=== PATIENT | female | born 2000 | race Two or more races ===

== ENCOUNTER 2022-03-09 02:25 | Outpatient (CLI) | payer OTHER ==
[2022-03-09] MEDS ORDERED: PRENATAL CAPLE1 EAC1 PO (03:29)
[2022-03-09] MEDS ORDERED: NIFE60TA3 PO (08:29)
== END 2022-03-09 08:46 | disposition home or self-care (01) ==
LOC: OBS/DEL 02:25
PROVIDERS: ATTEND Specialist
DX: O60.02 Preterm labor without delivery, second trimester (principal); Z3A.20 20 weeks gestation of pregnancy

== ENCOUNTER 2022-07-10 15:15 | Inpatient (IN) | payer OTHER ==
[~2022-07-10] VITALS: Ht 162.6 cm; Wt 76.7 kg
[~2022-07-10 15:15] MED LIST: NIFE60TA3 PO; PRENATAL CAPLE1 EAC1 PO
== END 2022-07-30 13:21 | disposition home or self-care (01) | DRG 807 ==
LOC: EDSTATUS 15:15 → LDR 07-26 15:15 → OB/GYN 07-28 07:09 → LDR 07-28 07:34 → OB/GYN 07-28 20:49
PROVIDERS: ADMIT Specialist; ATTEND Specialist
PROC: 10D07Z6 Extraction of Products of Conception, Vacuum, Via Natural or Artificial Opening (ICD-10-PCS; principal; 2022-07-28)
PROC: 4A1HXCZ Monitoring of Products of Conception, Cardiac Rate, External Approach (ICD-10-PCS; 2022-07-28)
PROC: 0W8NXZZ Division of Female Perineum, External Approach (ICD-10-PCS; 2022-07-28)
DX: O66.5 Attempted application of vacuum extractor and forceps (principal); Z37.0 Single live birth; Z3A.40 40 weeks gestation of pregnancy; Z20.822 Contact with and (suspected) exposure to COVID-19

== ENCOUNTER 2022-07-31 18:22 | Inpatient (IN) | payer OTHER ==
[~2022-07-31] VITALS: Ht 162.6 cm; Wt 76.7 kg
[2022-08-03] MEDS ORDERED: LABETALOL HCL100 MG PO (12:45)
[2022-08-03] MEDS ORDERED: CEFUROXIME500 MG PO (12:45)
== END 2022-08-03 16:59 | disposition home or self-care (01) | DRG 776 ==
LOC: ER 18:22 → OB/GYN 23:35 → LDR 23:35 → OB/GYN 08-02 12:09
PROVIDERS: ADMIT Specialist; ATTEND Specialist
PROC: BW4GZZZ Ultrasonography of Pelvic Region (ICD-10-PCS; principal; 2022-07-31)
DX: O14.95 Unspecified pre-eclampsia, complicating the puerperium (principal); Z20.822 Contact with and (suspected) exposure to COVID-19; O86.4 Pyrexia of unknown origin following delivery

== ENCOUNTER 2022-10-21 10:16 | Emergency (ER) | payer OTHER ==
[~2022-10-21] VITALS: Ht 162.6 cm; Wt 62.6 kg
[~2022-10-21 10:16] MED LIST changes: +CEFUROXIME500 MG PO; +LABETALOL HCL100 MG PO
[2022-10-21] MEDS ORDERED: LABETALOL HCL100 MG PO (13:57)
== END 2022-10-21 14:07 | disposition home or self-care (01) ==
LOC: ER 10:16
DX: R07.89 Other chest pain (principal); I10 Essential (primary) hypertension

== ENCOUNTER 2022-11-02 18:02 | Emergency (ER) | payer OTHER ==
[~2022-11-02] VITALS: Ht 167.6 cm; Wt 68.0 kg
== END 2022-11-02 21:51 | disposition home or self-care (01) ==
LOC: ER 18:02
DX: M94.0 Chondrocostal junction syndrome [Tietze] (principal); Z20.822 Contact with and (suspected) exposure to COVID-19

== ENCOUNTER 2022-11-12 14:53 | Emergency (ER) | payer OTHER ==
[~2022-11-12] VITALS: Ht 162.6 cm; Wt 62.6 kg
[2022-11-12] MEDS ORDERED: ZESTRIL5 MG (15:19)
[2022-11-12] MEDS ORDERED: D3-200050 MCG PO (16:47)
[2022-11-12] MEDS ORDERED: BACTRIM DS TAB1 EACH PO (16:47)
== END 2022-11-12 17:16 | disposition home or self-care (01) ==
LOC: ER 14:53
DX: N39.0 Urinary tract infection, site not specified (principal); I10 Essential (primary) hypertension

== ENCOUNTER 2023-12-11 19:25 | Emergency (ER) | payer OTHER ==
[~2023-12-11] VITALS: Ht 162.6 cm; Wt 56.2 kg
[~2023-12-11 19:25] MED LIST changes: +BACTRIM DS TAB1 EACH PO; +D3-200050 MCG PO; +ZESTRIL5 MG
[2023-12-11] MEDS ORDERED: GUAIFENESIN/DEXTROMETHORPHAN 100 MG/5 ML ML PO ONE (20:45)
[2023-12-11 21:49] LABS: HEMATOCRIT 37.8 % (36.0-45.00); HEMOGLOBIN 13.5 g/dL (12.0-15.00); MEAN CELL VOLUME 83.2 fL (80.00-100.00); MEAN CORPUSCULAR HEMOGLOBIN 29.6 pg (27.00-32.0); MEAN CORPUSCULAR HGB CONC 35.6 g/dl (32.0-36.0); PLATELET COUNT 272 K/uL (150-450); RED BLOOD COUNT 4.54 M/uL (4.00-6.00); RED CELL DISTRIBUTION WIDTH 13.1 % (11.5-14.5)
[2023-12-11] MEDS ORDERED: MUCINEX DM ER1 EACH PO (22:49)
== END 2023-12-11 23:02 | disposition home or self-care (01) ==
LOC: ER 19:26
PROVIDERS: Nurse Practitioner Family
DX: O26.891 Other specified pregnancy related conditions, first trimester (principal); J00 Acute nasopharyngitis [common cold]; Z3A.01 Less than 8 weeks gestation of pregnancy; Z20.822 Contact with and (suspected) exposure to COVID-19

== ENCOUNTER 2024-10-04 13:06 | Outpatient (CLI) | payer OTHER ==
[~2024-10-04 13:06] MED LIST changes: +MUCINEX DM ER1 EACH PO
== END 2024-10-04 13:09 | disposition home or self-care (01) ==
LOC: PRENATAL 13:06
PROVIDERS: ATTEND Obstetrics & Gynecology Maternal & Fetal Medicine
DX: O36.80X0 Pregnancy with inconclusive fetal viability, not applicable or unspecified (principal); Z36.82 Encounter for antenatal screening for nuchal translucency; Z14.8 Genetic carrier of other disease; O36.1999 Maternal care for other isoimmunization, unspecified trimester, other fetus; Z3A.13 13 weeks gestation of pregnancy

== ENCOUNTER 2024-10-11 15:00 | Emergency (ER) | payer OTHER ==
[~2024-10-11] VITALS: Ht 160 cm; Wt 54.4 kg
[2024-10-11 18:13] LABS: HEMATOCRIT 37.5 % (36.0-45.00); HEMOGLOBIN 13.1 g/dL (12.0-15.00); MEAN CELL VOLUME 84.1 fL (80.00-100.00); MEAN CORPUSCULAR HEMOGLOBIN 29.4 pg (27.00-32.0); PLATELET COUNT 295 K/uL (150-450); RED BLOOD COUNT 4.46 M/uL (4.00-6.00); RED CELL DISTRIBUTION WIDTH 12.8 % (11.5-14.5)
[2024-10-11 18:42] LABS: PH,URINE 6.5 (5.0-8.0); URINE APPEARANCE Clear; URINE BILIRRUBIN Negative (NEGATIVE); URINE BLOOD Negative; URINE COLOR Yellow; URINE GLUCOSE Negative (NEGATIVE); URINE KETONE Trace (NEGATIVE); URINE LEUKOCYTE Negative; URINE NITRATE Negative; URINE PROTEIN Negative (NEGATIVE); URINE UROBILINOGEN 0.2 E.U./dl
[2024-10-11 18:46] LABS: URINE BACTERIA 63.5 uL (0.0-1933); URINE EPITHELIAL CELLS 11.3 uL (0.0-38.8)
[2024-10-11 18:59] LABS: ALBUMIN 3.6 gm/dL (3.4-5.0); BILIRUBIN TOTAL 0.5 mg/dL (0.3-1.2); CALCIUM 9.7 mg/dL (8.5-10.1); CREATININE SERUM 0.53 mg/dL (0.55-1.02); GFR 141.72; GLOBULINA 3.9 G/DL (2.4-3.5); POTASSIUM 4.07 mEq/L (3.5-5.1); TOTAL PROTEIN 7.5 gm/dL (6.4-8.2)
[2024-10-11 19:00] LABS: URINE RBC 1.7 uL (0.0-20.8); URINE WBC 1.1 uL (0.0-23.2)
== END 2024-10-11 21:50 | disposition home or self-care (01) ==
LOC: ER 15:00
DX: R10.33 Periumbilical pain (principal)

== ENCOUNTER 2024-11-15 15:52 | Outpatient (CLI) | payer OTHER | END 2024-11-15 15:53 | disposition home or self-care (01) | LOC: PRENATAL 15:52 | PROVIDERS: ATTEND Obstetrics & Gynecology Maternal & Fetal Medicine | DX: O44.00 Complete placenta previa NOS or without hemorrhage, unspecified trimester (principal); O36.1999 Maternal care for other isoimmunization, unspecified trimester, other fetus; Z3A.19 19 weeks gestation of pregnancy ==

== ENCOUNTER 2025-01-03 14:15 | Outpatient (CLI) | payer OTHER ==
[~2025-01-03] VITALS: Ht 162.6 cm; Wt 61.2 kg
[2025-01-03 13:41] VITALS: BP 116/67
[2025-01-03] MEDS ORDERED: PRENATAL TABLE1 EAC4 PO (14:25)
[2025-01-03] MEDS ORDERED: RINGERS SOLUTION,LACTATED 1,000 ML IV SCH (14:45)
[2025-01-03 15:14] VITALS: BP 109/61
[2025-01-03 15:45] LABS: PH,URINE 6.5 (5.0-8.0); URINE APPEARANCE Clear; URINE BILIRRUBIN Negative (NEGATIVE); URINE BLOOD Negative; URINE COLOR Yellow; URINE GLUCOSE Negative (NEGATIVE); URINE KETONE Negative (NEGATIVE); URINE LEUKOCYTE Negative; URINE NITRATE Negative; URINE PROTEIN Negative (NEGATIVE); URINE UROBILINOGEN 0.2 E.U./dl
[2025-01-03 15:47] LABS: URINE BACTERIA 42.7 uL (0.0-1933)
[2025-01-03 15:51] LABS: HEMATOCRIT 32.9 % (36.0-45.00); HEMOGLOBIN 11.7 g/dL (12.0-15.00); MEAN CELL VOLUME 85.8 fL (80.00-100.00); MEAN CORPUSCULAR HEMOGLOBIN 30.5 pg (27.00-32.0); MEAN CORPUSCULAR HGB CONC 35.6 g/dl (32.0-36.0); PLATELET COUNT 237 K/uL (150-450); RED BLOOD COUNT 3.83 M/uL (4.00-6.00); RED CELL DISTRIBUTION WIDTH 12.9 % (11.5-14.5)
[2025-01-03 16:04] LABS: URINE EPITHELIAL CELLS 0.9 uL (0.0-38.8); URINE WBC 0.7 uL (0.0-23.2)
[2025-01-03 19:21] VITALS: BP 95/55
[2025-01-03 23:08] VITALS: BP 94/55
[2025-01-04 03:30] VITALS: BP 98/59
[2025-01-04 06:08] VITALS: BP 106/63; O2SAT 99
[2025-01-04 10:04] VITALS: BP 106/63
== END 2025-01-04 10:19 | disposition home or self-care (01) ==
LOC: OBS/DEL 14:15
PROVIDERS: ATTEND Obstetrics & Gynecology
DX: O26.892 Other specified pregnancy related conditions, second trimester (principal); O26.849 Uterine size-date discrepancy, unspecified trimester; O36.8199 Decreased fetal movements, unspecified trimester, other fetus; O60.00 Preterm labor without delivery, unspecified trimester; Z3A.26 26 weeks gestation of pregnancy

== ENCOUNTER → 2025-02-14 14:06 | Outpatient (CLI) | payer OTHER ==
[~2025-02-14 14:06] MED LIST changes: +PRENATAL TABLE1 EAC4 PO
== END | disposition home or self-care (01) ==
LOC: PRENATAL 14:06
PROVIDERS: ATTEND Obstetrics & Gynecology Maternal & Fetal Medicine
DX: O26.849 Uterine size-date discrepancy, unspecified trimester (principal); O36.8199 Decreased fetal movements, unspecified trimester, other fetus; O36.1999 Maternal care for other isoimmunization, unspecified trimester, other fetus; Z3A.32 32 weeks gestation of pregnancy

== ENCOUNTER 2025-03-21 09:55 | Inpatient (IN) | payer OTHER ==
[2025-03-21] VITALS (9 sets, daily range): BP systolic 110–131; BP diastolic 58–96; O2SAT 100
[~2025-03-21] VITALS: Ht 162.6 cm; Wt 68.9 kg
[2025-03-21] MEDS ORDERED: RINGERS SOLUTION,LACTATED 1,000 ML IV SCH (10:15)
[2025-03-21 10:32] LABS: BASO % 0.7 % (0.1-1.2); EOS # 0.10 (0.04-0.54); EOS % 1.0 % (0.7-7.0); LYMPH # 1.58 (1.18-3.74); LYMPH % 15.3 % (19.3-53.1); MEAN PLATELET VOLUME 10.80 fl (9.4-12.4); MONO # 0.64 (0.24-0.82); MONO % 6.2 % (4.7-12.5); NEUT # 7.78 (1.56-6.13); NEUT % 75.0 % (34.0-71.1); RED CELL DISTRIBUTION WIDTH 12.8 % (11.6-14.4)
[2025-03-21 10:33] LABS: URINE APPEARANCE Clear; URINE BILIRRUBIN Negative (NEGATIVE); URINE BLOOD Negative; URINE COLOR Yellow; URINE GLUCOSE Negative (NEGATIVE); URINE KETONE Negative (NEGATIVE); URINE LEUKOCYTE Negative; URINE NITRATE Negative; URINE PROTEIN Negative (NEGATIVE); URINE UROBILINOGEN 0.2 E.U./dl
[2025-03-21 10:35] LABS: URINE BACTERIA 247.2 uL (0.0-1933); URINE EPITHELIAL CELLS 61.5 uL (0.0-38.8); URINE RBC 2.9 uL (0.0-20.8); URINE WBC 16.4 uL (0.0-23.2)
[2025-03-21 10:37] LABS: URINE CAST 0.14 uL (0.0-1.40)
[2025-03-21 11:01] LABS: ALT/SGPT 14.0 U/L (12-78); AST/SGOT 13.0 U/L (15-37); BILIRUBIN TOTAL 0.49 mg/dL (0.3-1.2); BUN CREA RATIO 26.0 (7.0-25.0); CREATININE SERUM 0.42 mg/dL (0.55-1.02); GFR 185.36; GLOBULINA 3.2 G/DL (2.4-3.5); GLUCOSE FASTING 72.0 mg/dL (65-100); OSMOLALITY SERUM 277.0 MOSM/KG (275-295)
[2025-03-21] MEDS ORDERED: MISOPROSTOL 25 MCG/4 ML GEL.W.APPL VAG STA (12:15)
[2025-03-21] MEDS ORDERED: MORPHINE SULFATE 4 MG/ML VIAL IV ONE (20:15)
[2025-03-21] MEDS ORDERED: ERYTHROMYCIN BASE OPHT 1GM EACH TUBE OP ONE (23:15)
[2025-03-21] MEDS ORDERED: CHLORHEXIDINE GLUCONATE 120 ML BOTTLE TOP ONE (23:15)
[2025-03-21] MEDS ORDERED: OXYTOCIN 10 UNIT/ML (10ML) IV ONE (23:15)
[2025-03-21] MEDS ORDERED: OXYTOCIN 1,000 ML IV SCH (23:15)
[2025-03-21] MEDS ORDERED: LIDOCAINE HCL 1% 10ML VIAL IJ ONE (23:15)
[2025-03-22] VITALS: BP 122/41
[2025-03-22 02:42] VITALS: BP 123/69
[2025-03-22 06:20] LABS: BASO % 0.2 % (0.1-1.2); EOS # 0.03 (0.04-0.54); EOS % 0.2 % (0.7-7.0); LYMPH # 1.53 (1.18-3.74); LYMPH % 11.1 % (19.3-53.1); MEAN PLATELET VOLUME 10.80 fl (9.4-12.4); MONO # 1.13 (0.24-0.82); MONO % 8.2 % (4.7-12.5); NEUT # 10.94 (1.56-6.13); NEUT % 79.3 % (34.0-71.1); RED CELL DISTRIBUTION WIDTH 12.7 % (11.6-14.4)
[2025-03-22 08:00] VITALS: BP 120/68
[2025-03-22] MEDS ORDERED: FF) RHO(D) IMMUNE GLOBULIN (POM) IM ONE (10:00)
[2025-03-22 16:44] VITALS: BP 128/78
[2025-03-23 02:45] VITALS: BP 131/84
[2025-03-23 08:58] VITALS: BP 135/78
== END 2025-03-23 16:53 | disposition home or self-care (01) | DRG 806 ==
LOC: OBS/DEL 09:55 → LDR 12:21 → OB/GYN 12:21 → LDR 13:54 → OB/GYN 22:38
PROVIDERS: ADMIT Obstetrics & Gynecology; ATTEND Obstetrics & Gynecology
PROC: 10E0XZZ Delivery of Products of Conception, External Approach (ICD-10-PCS; principal; 2025-03-21)
PROC: 0KQM0ZZ Repair Perineum Muscle, Open Approach (ICD-10-PCS; 2025-03-21)
PROC: 0UQMXZZ Repair Vulva, External Approach (ICD-10-PCS; 2025-03-21)
PROC: 3E033VJ Introduction of Other Hormone into Peripheral Vein, Percutaneous Approach (ICD-10-PCS; 2025-03-21)
PROC: 3E0P7VZ Introduction of Hormone into Female Reproductive, Via Natural or Artificial Opening (ICD-10-PCS; 2025-03-21)
PROC: BY4FZZZ Ultrasonography of Third Trimester, Single Fetus (ICD-10-PCS; 2025-03-21)
PROC: 4A1HXCZ Monitoring of Products of Conception, Cardiac Rate, External Approach (ICD-10-PCS; 2025-03-21)
DX: O70.1 Second degree perineal laceration during delivery (principal); O71.82 Other specified trauma to perineum and vulva; O41.03X0 Oligohydramnios, third trimester, not applicable or unspecified; Z37.0 Single live birth; O26.843 Uterine size-date discrepancy, third trimester; O36.8130 Decreased fetal movements, third trimester, not applicable or unspecified; Z3A.37 37 weeks gestation of pregnancy

== ENCOUNTER 2025-04-08 09:44 | Emergency (ER) | payer OTHER ==
[~2025-04-08] VITALS: Ht 266.7 cm; Wt 61.2 kg
[2025-04-08] MEDS ORDERED: PRIMACARE SOFT1 EACH PO (10:08)
[2025-04-08 10:33] LABS: BASO % 0.6 % (0.1-1.2); EOS # 0.14 (0.04-0.54); EOS % 2.1 % (0.7-7.0); LYMPH # 0.83 (1.18-3.74); LYMPH % 12.6 % (19.3-53.1); MEAN PLATELET VOLUME 9.10 fl (9.4-12.4); MONO # 0.41 (0.24-0.82); MONO % 6.2 % (4.7-12.5); NEUT # 5.14 (1.56-6.13); NEUT % 77.9 % (34.0-71.1); RED CELL DISTRIBUTION WIDTH 11.8 % (11.6-14.4)
[2025-04-08] MEDS ORDERED: KETOROLAC TROMETHAMINE 30 MG VIAL IV ONE (10:45)
== END 2025-04-08 12:10 | disposition home or self-care (01) ==
LOC: ER 09:44
PROVIDERS: Emergency Medicine
DX: O92.29 Other disorders of breast associated with pregnancy and the puerperium (principal)